=== PATIENT | female | born 1985 ===

== ENCOUNTER 2017-04-06 12:00 | Emergency (ER) | payer MEDICAID ==
[2017-04-06 12:04] VITALS: BP 133/81; PULSE 61; RESP 17; TEMP 98.5; O2SAT 100
[2017-04-06] MEDS ORDERED: Oxycodone/Acetaminophen 5/325 mg Tab PO STA (12:13)
[2017-04-06] MEDS ORDERED: Oxycodone/Acetaminophen 5/325 mg Tab ONE (12:33)
--- NOTE | 2017-04-06 12:36 | ED PDOC ---
HPI: Dental Pain/Injury Time Seen by Provider: 04/06/17 12:06 Chief Complaint (Nursing): Dental Pain Chief Complaint (Provider): Dental pain History Per: Patient History/Exam Limitations: no limitations Onset/Duration Of Symptoms: Days Current Symptoms Are (Timing): Still Present Additional History Per: Patient Additional Complaint(s): The patient is a 32yo female, no pmhx, presents to the ED for evaluation of left jaw pain for the past day. Pt reports the pain is constant and took Tylenol for pain with no relief. She denies any radiation of pain, recent dental work. Pt states she has not followed up with a dentist for her symptoms but has a visit scheduled tomorrow. Past Medical History Reviewed: Historical Data, Nursing Documentation, Vital Signs Vital Signs: Last Vital Signs Temp 98.5 F 04/06/17 12:02 Pulse 61 04/06/17 12:02 Resp 17 04/06/17 12:02 BP 133/81 04/06/17 12:02 Pulse Ox 100 04/06/17 12:02 - Medical History PMH: No Chronic Diseases - Surgical History Surgical History: No Surg Hx - Family History Family History: States: No Known Family Hx, Unknown Family Hx - Home Medications Home Medications: Ambulatory Orders Medication Instructions Recorded Ibuprofen [Motrin] 600 mg PO Q6 #20 tab 04/06/17 - Allergies Allergies/Adverse Reactions: Allergies Allergy/AdvReac Type Severity Reaction Status Date / Time aspirin Allergy RASH Verified 04/06/17 12:26 Review of Systems ROS Statement: Except As Marked, All Systems Reviewed And Found Negative ENT: Positive for: Other (left sided dental pain) Physical Exam - Reviewed Nursing Documentation Reviewed: Yes Vital Signs Reviewed: Yes - Physical Exam Appears: Positive for: Well, Non-toxic, No Acute Distress Head Exam: Positive for: ATRAUMATIC, NORMAL INSPECTION, NORMOCEPHALIC Skin: Positive for: Normal Color, Warm, DRY Eye Exam: Positive for: Normal appearance ENT: Positive for: Normal ENT Inspection, Other (no signs of infection or abscess noted; normal dentition) Neck: Positive for: Normal, Supple Cardiovascular/Chest: Positive for: Regular Rate, Rhythm Respiratory: Positive for: Normal Breath Sounds. Negative for: Respiratory Distress Gastrointestinal/Abdominal: Positive for: Normal Exam, Soft. Negative for: Tenderness Extremity: Positive for: Normal ROM. Negative for: Deformity, Swelling Neurologic/Psych: Positive for: Alert, Oriented - ECG O2 Sat by Pulse Oximetry: 100 (RA) Pulse Ox Interpretation: Normal Medical Decision Making Medical Decision Making: Time: 1206 Impression: Dental pain Plan: -- Toradol 30 mg IM -- Percocet 1 tab PO -- Upreg Reassess Scribe Attestation: Documented by Ashanti Watson acting as a scribe for OLEG Jaquez Provider Attestation: All medical record entries made by the Scribe were at my direction and personally dictated by me. I have reviewed the chart and agree that the record accurately reflects my personal performance of the history, physical exam, medical decision making, and the department course for this patient. I have also personally directed, reviewed, and agree with the discharge instructions and disposition. Disposition - Clinical Impression Clinical Impression: Dental caries - Patient ED Disposition Is Patient to be Admitted: No - Disposition Disposition: Routine/Home Disposition Time: 13:14 Condition: STABLE Prescriptions: Ibuprofen [Motrin] 600 mg PO Q6 #20 tab Instructions: Dental Caries (ED) Forms: [facility] (Mexican) - POA Present On Arrival: None
== END 2017-04-06 13:27 | disposition home or self-care (01) ==
LOC: H.ER 12:00
DX: K02.9 Dental caries, unspecified (principal)
CPT/HCPCS: 81025; 96372; 99282; J1885

== ENCOUNTER 2017-05-22 06:27 | Emergency (ER) | payer MEDICAID ==
[2017-05-22 06:32] VITALS: BP 139/89; PULSE 89; RESP 17; TEMP 98.1; O2SAT 100
--- NOTE | 2017-05-22 07:46 | ED PDOC ---
HPI: Skin/Bite Injury Time Seen by Provider: 05/22/17 07:04 Chief Complaint (Nursing): Abnormal Skin Integrity Chief Complaint (Provider): ingrown hair History Per: Patient History/Exam Limitations: no limitations Onset/Duration Of Symptoms: Days (x 6) Additional Complaint(s): Stephanie Mcfarlane is a 32 year old female, with no previous medical history, who presents to the ED with complaints of an ingrown hair in her groin presenting for 6 days. She denies any fever or chills. Patient reports taking iboprfen for the pain which provided relief. Past Medical History Reviewed: Historical Data, Nursing Documentation, Vital Signs Vital Signs: Last Vital Signs Temp 98.1 F 05/22/17 06:30 Pulse 89 05/22/17 06:30 Resp 17 05/22/17 06:30 BP 139/89 05/22/17 06:30 Pulse Ox 100 05/22/17 08:00 - Medical History PMH: No Chronic Diseases - Family History Family History: States: Unknown Family Hx - Home Medications Home Medications: Ambulatory Orders Medication Instructions Recorded Ibuprofen [Motrin] 600 mg PO Q6 #20 tab 04/06/17 Sulfamethoxazole/Trimethoprim 1 tab PO BID #14 tab 05/22/17 [Bactrim DS 800 mg-160 mg] traMADol [Ultram] 25 mg PO BID PRN #10 tab 05/22/17 - Allergies Allergies/Adverse Reactions: Allergies Allergy/AdvReac Type Severity Reaction Status Date / Time aspirin Allergy RASH Verified 04/06/17 12:26 Review of Systems ROS Statement: Except As Marked, All Systems Reviewed And Found Negative Constitutional: Negative for: Fever, Chills Skin: Positive for: Other (ingrown hair) Physical Exam - Reviewed Nursing Documentation Reviewed: Yes Vital Signs Reviewed: Yes - Physical Exam Appears: Positive for: Well, Non-toxic, No Acute Distress Skin: Positive for: Normal Color, Warm, Dry Pelvic Exam: Positive for: Other (1 cm mass noted on the left lower groin area with minimal fluctuance ) Neurologic/Psych: Positive for: Alert, Oriented - ECG O2 Sat by Pulse Oximetry: 100 (RA) Pulse Ox Interpretation: Normal Medical Decision Making Medical Decision Making: Initial Plan: * urine * wound culture * tylenol 650 mg PO * reevaluation --------- Scribe Attestation: Documented by Samantha Almaraz, acting as a scribe for Samantha Henry MD. Provider Scribe Attestation: All medical record entries made by the Scribe were at my direction and personally dictated by me. I have reviewed the chart and agree that the record accurately reflects my personal performance of the history, physical exam, medical decision making, and the department course for this patient. I have also personally directed, reviewed, and agree with the discharge instructions and disposition Disposition - Clinical Impression Clinical Impression: Abscess of female pelvis - Disposition Referrals: [facility] [Outside] Disposition: Routine/Home Disposition Time: 07:40 Condition: STABLE Prescriptions: Sulfamethoxazole/Trimethoprim [Bactrim DS 800 mg-160 mg] 1 tab PO BID #14 tab traMADol [Ultram] 25 mg PO BID PRN #10 tab PRN Reason: Pain, Severe (8-10) Instructions: Abscess (ED) Forms: [employer] (Kyrgyz), [employer] (Kazakh) Print Language: JAPANESE Procedure: Fluid Aspiration - Time Performed Time Performed: 07:45 (needle aspiration ) - Time Out Time Out: Side verified, Site verified, Patient ID confirmed, Sterile procedures obs. - Consent Obtained Consent obtained: Verbal - Performed By Performed by: Attending Physician - Indications Indication(s): Therapeutic, Diagnostic - Anesthetic Technique Anesthetic Technique: Oral pain medication Procedure: Needle gauge (18) - Post-procedure Post-procedure: Dressed Post-Procedural O2 sat %: 100 - Complications Complications: None - Patient tolerated procedure Patient tolerated procedure: Well
== END 2017-05-22 08:01 | disposition home or self-care (01) ==
LOC: H.ER 06:27
DX: N73.9 Female pelvic inflammatory disease, unspecified (principal)

== ENCOUNTER 2017-09-12 06:49 | Emergency (ER) | payer MEDICAID ==
[2017-09-12 06:52] VITALS: BMI 28.8
[2017-09-12 07:12] VITALS: PULSE 95; RESP 20; TEMP 99.2; O2SAT 98
[2017-09-12] MEDS: Naproxen 500 MG TAB PO ONE (07:30)
--- NOTE | 2017-09-12 07:34 | ED PDOC ---
HPI: General Adult Time Seen by Provider: 09/12/17 07:06 Chief Complaint (Nursing): Cough, Cold, Congestion Chief Complaint (Provider): Cough, Cold, Congestion History Per: Patient History/Exam Limitations: no limitations Onset/Duration Of Symptoms: Days (x 2 to 3 ) Current Symptoms Are (Timing): Still Present Additional Complaint(s): Stephanie is a 32 year old female who presents to the emergency department with upper back pain for 2 to 3 days. Patient states she has slight cough and generalized body pain as well as sore throat. Patient feels like she has the flu. Patient states she was diagnosed with flu 2 months ago here in ER. Patient reports taking her temperature at temperature with a thermometer showed 75 degrees. PMD: No Family Provider Past Medical History Reviewed: Historical Data, Nursing Documentation, Vital Signs Vital Signs: Last Vital Signs Temp 99.2 F 09/12/17 07:09 Pulse 95 H 09/12/17 07:09 Resp 20 09/12/17 07:09 BP 141/84 09/12/17 07:09 Pulse Ox 98 09/12/17 08:06 - Medical History PMH: No Chronic Diseases - Surgical History Surgical History: No Surg Hx - Family History Family History: States: No Known Family Hx Other Family History: Breast Cancer - Social History Current smoker - smoking cessation education provided: Yes (Occasionally smokes Hooka) Alcohol: Occasional Drugs: Denies - Home Medications Home Medications: Ambulatory Orders Medication Instructions Recorded Guaifenesin/Pseudoephedrne HCl 1 ter PO Q12H PRN #10 ter 09/12/17 [Mucinex D 600 mg-60 mg] Naproxen [Naprosyn] 500 mg PO BID PRN #20 tablet 09/12/17 - Allergies Allergies/Adverse Reactions: Allergies Allergy/AdvReac Type Severity Reaction Status Date / Time aspirin Allergy RASH Verified 07/03/17 10:58 Review of Systems ROS Statement: Except As Marked, All Systems Reviewed And Found Negative Constitutional: Positive for: Fever ENT: Positive for: Throat Pain Respiratory: Positive for: Cough Musculoskeletal: Positive for: Back Pain (Upper) Physical Exam - Reviewed Nursing Documentation Reviewed: Yes Vital Signs Reviewed: Yes - Physical Exam Appears: Positive for: In Acute Distress (Mild Discomfort) Skin: Negative for: Rash ENT: Positive for: Normal ENT Inspection, Pharynx Is (Clear) Neck: Positive for: Supple Cardiovascular/Chest: Positive for: Regular Rate, Rhythm (S1 and S2 heart sounds noted) Respiratory: Positive for: Normal Breath Sounds (Lungs clear anterior and posterior). Negative for: Rales, Wheezing Gastrointestinal/Abdominal: Positive for: Normal Exam, Soft. Negative for: Tenderness Back: Positive for: Normal Inspection Extremity: Positive for: Normal ROM. Negative for: Pedal Edema, Deformity Neurologic/Psych: Positive for: Alert, Oriented - Laboratory Results Urine POC: Negative - ECG O2 Sat by Pulse Oximetry: 98 (RA) Pulse Ox Interpretation: Normal - Radiology X-Ray: Read By Radiologist X-Ray Interpretation: No Acute Disease Medical Decision Making Medical Decision Making: Time: 07:18 Plan: - Test - Chest X-Ray - Naproxen 500 mg PO - Influenza A B Scribe Attestation: Documented by Nicanor Morales, acting as a scribe for Sherrie Duron MD Provider Scribe Attestation: All medical record entries made by the Scribe were at my direction and personally dictated by me. I have reviewed the chart and agree that the record accurately reflects my personal performance of the history, physical exam, medical decision making, and the department course for this patient. I have also personally directed, reviewed, and agree with the discharge instructions and disposition. 8.30a - chest x-ray and flu swab negative. will discharge with symptomatic treatment Disposition - Clinical Impression Clinical Impression: URI (upper respiratory infection) - Patient ED Disposition Is Patient to be Admitted: No Doctor Will See Patient In The: Office Counseled Patient/Family Regarding: Diagnosis, Need For Followup, Rx Given - Disposition Disposition: Routine/Home Disposition Time: 08:30 Condition: STABLE Prescriptions: Guaifenesin/Pseudoephedrne HCl [Mucinex D 600 mg-60 mg] 1 ter PO Q12H PRN #10 ter PRN Reason: cough/congestion Naproxen [Naprosyn] 500 mg PO BID PRN #20 tablet PRN Reason: Pain, Moderate (4-7) Forms: [facility] (Setswana) - POA Present On Arrival: None
--- NOTE | 2017-09-12 08:11 | RAD ---
HISTORY: upper back pain COMPARISON: No prior. TECHNIQUE: Chest PA and lateral FINDINGS: LUNGS: No active pulmonary disease. PLEURA: No significant pleural effusion identified. No pneumothorax apparent. CARDIOVASCULAR: Normal. OSSEOUS STRUCTURES: No significant abnormalities. VISUALIZED UPPER ABDOMEN: Normal. OTHER FINDINGS: None. IMPRESSION: No active disease.
[2017-09-12 09:01] VITALS: BP 120/70
== END 2017-09-12 09:01 | disposition home or self-care (01) ==
LOC: H.ER 06:49
DX: J06.9 Acute upper respiratory infection, unspecified (principal)

== ENCOUNTER 2018-02-12 14:31 | Emergency (ER) | payer MEDICAID, OTHER, SELFPAY ==
[2018-02-12 14:31] VITALS: BMI 28.8
[2018-02-12 14:38] VITALS: BP 112/74; PULSE 74; RESP 18; TEMP 99; O2SAT 97
--- NOTE | 2018-02-12 17:07 | ED PDOC ---
HPI: Back Time Seen by Provider: 02/12/18 15:16 Chief Complaint (Nursing): Upper Extremity Problem/Injury Chief Complaint (Provider): Lower Back Pain History Per: Patient History/Exam Limitations: no limitations Onset/Duration Of Symptoms: Days (4) Current Symptoms Are (Timing): Still Present Quality Of Discomfort: "Pain" Previous Symptoms: Back Pain Exacerbating Factor(s): Movement Additional Complaint(s): 32 y/o female presents to the ED with lower back pain. Patient reports it began 4 days ago and worsens with movement. She states she had a similar episode 8 years ago after giving but symptoms resolved on their own 2 weeks later. Patient denies any radiation of the pain. Denies any trauma, fall, fever, nausea , vomiting, abdominal pain, chest pain, saddle anesthesia, or urinary symptoms. Of note, patient also reports a squeezing sensation to the left forearm with movement that shoots into her fingers. She states it is intermittent and denies having it currently. Denies any trauma, overlying skin changes to that area, weakness, or numbness. LMP: 01/09/2018 PMD: none provided Past Medical History Reviewed: Historical Data, Nursing Documentation, Vital Signs Vital Signs: Last Vital Signs Temp 99.0 F 02/12/18 14:37 Pulse 74 02/12/18 14:37 Resp 18 02/12/18 14:37 BP 112/74 02/12/18 14:37 Pulse Ox 97 02/12/18 14:37 - Medical History PMH: No Chronic Diseases - Surgical History Surgical History: (2) - Family History Family History: States: Unknown Family Hx - Social History Current smoker - smoking cessation education provided: No Ex-Smoker (has not smoked in the last 12 months): No Alcohol: None Drugs: Denies - Home Medications Home Medications: Ambulatory Orders Medication Instructions Recorded Guaifenesin/Pseudoephedrne HCl 1 ter PO Q12H PRN #10 ter 09/12/17 [Mucinex D 600 mg-60 mg] Naproxen [Naprosyn] 500 mg PO BID PRN #20 tablet 09/12/17 Cyclobenzaprine [Cyclobenzaprine 10 mg PO Q8 PRN #12 tab 02/12/18 HCl] Naproxen 500 mg PO BID PRN #20 tab 02/12/18 - Allergies Allergies/Adverse Reactions: Allergies Allergy/AdvReac Type Severity Reaction Status Date / Time aspirin Allergy RASH Verified 07/03/17 10:58 Review of Systems ROS Statement: Except As Marked, All Systems Reviewed And Found Negative Constitutional: Negative for: Fever, Other (no trauma or falls) Cardiovascular: Negative for: Chest Pain Gastrointestinal: Negative for: Nausea, Vomiting, Abdominal Pain Genitourinary Female: Negative for: Incontinence, Other (urinary symptoms) Musculoskeletal: Positive for: Back Pain (lower; worsens with movement). Negative for: Other (radiation of back pain) Neurological: Negative for: Weakness, Numbness, Other (saddle anesthesia) Physical Exam - Reviewed Nursing Documentation Reviewed: Yes Vital Signs Reviewed: Yes - Physical Exam Comments: GENERAL APPEARANCE: Patient is awake, alert, oriented x 3, in no acute distress. SKIN: Warm, dry; (-) cyanosis. EYES: (-) conjunctival pallor. ENMT: Mucous membranes moist. NECK: (-) tenderness, (-) stiffness, (-) lymphadenopathy. CHEST AND RESPIRATORY: (-) rales, (-) rhonchi, (-) wheezes; breath sounds equal bilaterally. HEART AND CARDIOVASCULAR: (-) irregularity; (-) murmur, (-) gallop. ABDOMEN AND GI: Soft; (-) tenderness; (-) palpable mass. BACK: (+) reproducible bilateral paralumbar tenderness, (-) direct bony tenderness, (-) CVA tenderness (-) deformity (-) midline tenderness. Straight leg raising (-) bilaterally. EXTREMITIES: (-) deformity. Distal pulses good bilaterally. NEURO AND PSYCH: Mental status as above. Intact sensation bilaterally; normal strength in extension of the knees, plantar and dorsiflexion of the toes. DTRs symmetric. - Laboratory Results Urine POC: Negative Urine dip results: Negative for: Leukocyte Esterase, Blood, Nitrate, Ketones, Glucose, Bilirubin, Protein - ECG O2 Sat by Pulse Oximetry: 97 (RA) Pulse Ox Interpretation: Normal Medical Decision Making Medical Decision Making: Time: 15:00 Impression: Back pain, likely musculoskeletal Plan: * UDip * Flexiril 10 mg PO * Toradol 30 mg IM * Ultram 50 mg PO (Not driving home) * Urine preg test 1630 Urine dipstick reviewed and unremarkable. Upreg: negative 1750 On re-evaluation, patient reports resolution of symptoms. On exam, patient remains AAOx3, in no acute distress. On exam, neck is supple, lungs CTA, cardiac RRR, abdomen is soft and non-tender, neuro exam shows no focal findings. VSS, stable for discharge. Diagnostic results d/w the patient in great detail. Dx of acute back pain, musculoskeletal pain d/w the patient. Based on history, exam and diagnostic results plan will be for discharge and outpatient follow up. Advised to follow up with primary care physician in 1-2 days without fail. Advised to take medication as prescribed. Return to the emergency room at any time for any new or worsening symptoms. Patient states she fully agrees with and understands discharge instructions. States that she agrees with the plan and disposition. Verbalized and repeated discharge instructions and plan. I have given the patient opportunity to ask any additional questions. Scribe Attestation: Documented by Gino Fried acting as a scribe Lydia Hsu PA-C. MD Scribe Attestation: All medical record entries made by the Scribe were at my direction and personally dictated by me. I have reviewed the chart and agree that the record accurately reflects my personal performance of the history, physical exam, medical decision making, and the department course for this patient. I have also personally directed, reviewed, and agree with the discharge instructions and disposition. Disposition - Clinical Impression Clinical Impression: Back pain, Musculoskeletal arm pain - Patient ED Disposition Is Patient to be Admitted: No Counseled Patient/Family Regarding: Studies Performed, Diagnosis, Need For Followup, Rx Given - Disposition Referrals: [facility] [Outside] Disposition: Routine/Home Disposition Time: 18:01 Condition: STABLE Additional Instructions: FOLLOW UP WITH PMD/CLINIC IN 1-2 DAYS WITHOUT FAIL. RETURN TO ED WITH ANY NEW OR WORSENING SYMPTOMS. Prescriptions: Cyclobenzaprine [Cyclobenzaprine HCl] 10 mg PO Q8 PRN #12 tab PRN Reason: Muscle Spasm Naproxen 500 mg PO BID PRN #20 tab PRN Reason: Pain, Moderate (4-7) Instructions: Muscle and Bone Pain (DC), Low Back Pain in Adults, Muscle Spasms (DC) Forms: [employer] (Anguillan) Print Language: FRISIAN - POA Present On Arrival: None
== END 2018-02-12 18:19 | disposition home or self-care (01) ==
LOC: H.ER 14:31
DX: M54.5 Low back pain (principal); M79.602 Pain in left arm; M79.1 Myalgia
CPT/HCPCS: 96372; 99283; J1885

== ENCOUNTER 2018-05-02 16:34 | Emergency (ER) | payer MEDICAID, OTHER ==
[2018-05-02 16:34] VITALS: BMI 28.8
--- NOTE | 2018-05-02 18:10 | ED PDOC ---
HPI: General Adult Time Seen by Provider: 05/02/18 16:50 Chief Complaint (Nursing): Lower Extremity Problem/Injury Chief Complaint (Provider): Bilateral upper and lower Extremity Pain History Per: Patient History/Exam Limitations: no limitations Onset/Duration Of Symptoms: Days Current Symptoms Are (Timing): Constant Additional Complaint(s): 33 year old female presents to the ED for an evaluation of pain and swelling of both feet and hands. Patient states she stands all day for 8 hours at her new job. She describes the pain as constant and feels tired. Denies any fall or excessive walking. no headache, dizziness, sob or chest pain PMD: No Family Provider Past Medical History Reviewed: Historical Data, Nursing Documentation, Vital Signs Vital Signs: Last Vital Signs Temp 98 F 05/02/18 19:11 Pulse 78 05/02/18 19:11 Resp 18 05/02/18 19:11 BP 122/80 05/02/18 19:11 Pulse Ox 99 05/02/18 19:11 - Medical History PMH: No Chronic Diseases - Surgical History Surgical History: (2) - Family History Family History: States: Unknown Family Hx - Home Medications Home Medications: Ambulatory Orders Medication Instructions Recorded Guaifenesin/Pseudoephedrne HCl 1 ter PO Q12H PRN #10 ter 09/12/17 [Mucinex D 600 mg-60 mg] Naproxen [Naprosyn] 500 mg PO BID PRN #20 tablet 09/12/17 Cyclobenzaprine [Cyclobenzaprine 10 mg PO Q8 PRN #12 tab 02/12/18 HCl] Naproxen 500 mg PO BID PRN #20 tab 02/12/18 - Allergies Allergies/Adverse Reactions: Allergies Allergy/AdvReac Type Severity Reaction Status Date / Time aspirin Allergy RASH Verified 05/02/18 16:41 Review of Systems ROS Statement: Except As Marked, All Systems Reviewed And Found Negative Constitutional: Negative for: Fever Musculoskeletal: Positive for: Hand Pain, Leg Pain Psych: Negative for: Suicidal ideation (homicidal ideation ) Physical Exam - Reviewed Nursing Documentation Reviewed: Yes Vital Signs Reviewed: Yes - Physical Exam Appears: Positive for: Well, Non-toxic, No Acute Distress Head Exam: Positive for: ATRAUMATIC, NORMAL INSPECTION, NORMOCEPHALIC Skin: Positive for: Normal Color, Warm, Dry Eye Exam: Positive for: Normal appearance Extremity: Positive for: Normal ROM. Negative for: Tenderness, Pedal Edema, Deformity, Swelling Neurologic/Psych: Positive for: Alert, Oriented (x3). Negative for: Motor/ Sensory Deficits - Laboratory Results Result Diagrams: 05/02/18 18:30 05/02/18 18:30 - ECG O2 Sat by Pulse Oximetry: 100 (RA) Medical Decision Making Medical Decision Making: Time: 1748 Initial Impression: bilateral upper and lower extremity edema Initial Plan: --CMP --CBC w/ Differential --Reevaluation Pt asking to go home after blood draw, unable to await for results. Pt advised supportive care measures, follow up with PMD or clinic. return to ED with any concerns Scribe Attestation: Documented by Mynor Wilson, acting as a scribe for Sahara Cloud PA-C. Provider Scribe Attestation: All medical record entries made by the Scribe were at my direction and personally dictated by me. I have reviewed the chart and agree that the record accurately reflects my personal performance of the history, physical exam, medical decision making, and the department course for this patient. I have also personally directed, reviewed, and agree with the discharge instructions and disposition. Disposition - Clinical Impression Clinical Impression: Leg edema, Swelling of extremity - Patient ED Disposition Is Patient to be Admitted: No - Disposition Disposition: Routine/Home Disposition Time: 22:04 Condition: STABLE Instructions: Dependent Edema (DC) Forms: [employer] (Andorran) Print Language: GREENLANDIC
[2018-05-02 18:49] LABS: BASO % 0.6 % (0.0-2.0); EOS # 0.2 K/uL (0.0-0.7); EOS % 3.3 % (0.0-4.0); HEMOGLOBIN 13.6 g/dL (12.0-16.0); LYMPH # 2.7 K/uL (1.0-4.3); LYMPH % 46.1 % (20.0-40.0); MEAN CELL VOLUME 91.9 fl (81.0-99.0); MEAN CORPUSCULAR HEMOGLOBIN 30.6 pg (27.0-31.0); MEAN CORPUSCULAR HGB CONC 33.3 g/dL (33.0-37.0); MEAN PLATELET VOLUME 8.5 fl (7.2-11.7); MONO # 0.4 K/uL (0.0-0.8); MONO % 7.3 % (0.0-10.0); NEUT # 2.5 K/uL (1.8-7.0); NEUT % 42.7 % (50.0-75.0); RBC 4.44 Mil/uL (3.80-5.20); RED CELL DISTRIBUTION WIDTH 13.9 % (11.5-14.5); WHITE BLOOD COUNT 5.8 K/uL (4.8-10.8)
[2018-05-02 19:04] LABS: ALB/GLOB RATIO 1.2 (1.0-2.1); ALBUMIN 3.6 g/dL (3.5-5.0); ALT/SGPT 32 U/L (9-52); AST/SGOT 31 U/L (14-36); BLOOD UREA NITROGEN 15 mg/dl (7-17); CALCIUM 8.9 mg/dL (8.4-10.2); GFR NON-AFRICAN AMERICAN > 60
[2018-05-02 19:12] VITALS: BP 122/80; PULSE 78; RESP 18; TEMP 98
[2018-05-02 22:04] VITALS: O2SAT 100
== END 2018-05-02 19:11 | disposition home or self-care (01) ==
LOC: H.ER 16:34
DX: R60.0 Localized edema (principal)

== ENCOUNTER 2018-05-07 11:19 | Emergency (ER) | payer MEDICAID ==
[2018-05-07 11:20] VITALS: BMI 28.8
[2018-05-07 13:25] LABS: BASO % 0.6 % (0.0-2.0); EOS # 0.2 K/uL (0.0-0.7); EOS % 3.9 % (0.0-4.0); HEMOGLOBIN 14.9 g/dL (12.0-16.0); LYMPH # 2.3 K/uL (1.0-4.3); LYMPH % 42.7 % (20.0-40.0); MEAN CELL VOLUME 91.8 fl (81.0-99.0); MEAN CORPUSCULAR HEMOGLOBIN 30.3 pg (27.0-31.0); MEAN PLATELET VOLUME 8.4 fl (7.2-11.7); MONO # 0.4 K/uL (0.0-0.8); MONO % 7.9 % (0.0-10.0); NEUT # 2.4 K/uL (1.8-7.0); NEUT % 44.9 % (50.0-75.0); NRBC % 0.1 % (0.0-0.0); RBC 4.92 Mil/uL (3.80-5.20); RED CELL DISTRIBUTION WIDTH 13.9 % (11.5-14.5); WHITE BLOOD COUNT 5.4 K/uL (4.8-10.8)
[2018-05-07 14:04] LABS: BLOOD UREA NITROGEN 13 mg/dl (7-17); CALCIUM 9.4 mg/dL (8.4-10.2); GFR NON-AFRICAN AMERICAN > 60
--- NOTE | 2018-05-07 14:14 | ED PDOC ---
HPI: Abdomen Time Seen by Provider: 05/07/18 12:10 Chief Complaint (Nursing): Abdominal Pain Chief Complaint (Provider): abdominal pain and b/l leg swelling History Per: Patient History/Exam Limitations: no limitations Onset/Duration Of Symptoms: Days (x1 month) Current Symptoms Are (Timing): Still Present Location Of Pain/Discomfort: RLQ Associated Symptoms: denies: Fever, Chills, Chest Pain, Urinary Symptoms Additional Complaint(s): Stephanie Mcfarlane is a 33 year old female, with no significant past medical history , who presents to the emergency department complaining of intermittent bilateral leg swelling onset for x1 month and right sided pelvic pain onset for x2 weeks. Patient denies any fever, chills, urinary symptoms, chest pain and shortness of breath. No further medical complaints. PMD: None provided. Past Medical History Reviewed: Historical Data, Nursing Documentation, Vital Signs - Medical History PMH: No Chronic Diseases - Surgical History Surgical History: (2) Other surgeries: tubal ligation - Family History Family History: States: Unknown Family Hx - Home Medications Home Medications: Ambulatory Orders Medication Instructions Recorded Guaifenesin/Pseudoephedrne HCl 1 ter PO Q12H PRN #10 ter 09/12/17 [Mucinex D 600 mg-60 mg] Naproxen [Naprosyn] 500 mg PO BID PRN #20 tablet 09/12/17 Cyclobenzaprine [Cyclobenzaprine 10 mg PO Q8 PRN #12 tab 02/12/18 HCl] Naproxen 500 mg PO BID PRN #20 tab 02/12/18 - Allergies Allergies/Adverse Reactions: Allergies Allergy/AdvReac Type Severity Reaction Status Date / Time aspirin Allergy RASH Verified 05/02/18 16:41 Review of Systems ROS Statement: Except As Marked, All Systems Reviewed And Found Negative Constitutional: Negative for: Fever, Chills Cardiovascular: Negative for: Chest Pain Respiratory: Negative for: Shortness of Breath Genitourinary Female: Positive for: Pelvic Pain (right sided). Negative for: Dysuria, Frequency Musculoskeletal: Positive for: Leg Pain (b/l leg swelling) Physical Exam - Reviewed Nursing Documentation Reviewed: Yes Vital Signs Reviewed: Yes - Physical Exam Appears: Positive for: No Acute Distress Head Exam: Positive for: ATRAUMATIC, NORMAL INSPECTION, NORMOCEPHALIC Skin: Positive for: Normal Color, Warm, Dry Eye Exam: Positive for: Normal appearance, EOMI, PERRL Neck: Positive for: Painless ROM Cardiovascular/Chest: Positive for: Regular Rate, Rhythm. Negative for: Murmur Respiratory: Positive for: Normal Breath Sounds. Negative for: Respiratory Distress Gastrointestinal/Abdominal: Positive for: Tenderness (mild tenderness in RLQ) Extremity: Positive for: Normal ROM, Pedal Edema, Swelling (pitting edema to right and left lower leg.). Negative for: Deformity Neurologic/Psych: Positive for: Alert, Oriented. Negative for: Motor/Sensory Deficits - Laboratory Results Result Diagrams: 05/07/18 13:10 05/07/18 13:50 Medical Decision Making Medical Decision Making: Time: 12:10 Initial Impression: Bilateral leg swelling and right lower quadrant pelvic pain. Differential diagnosis for leg swelling include acute vs chronic renail failure r/o CHF. Differential for pelvic pain considered ovarian cysts or mass. Possible dehydration and less likely complication and UTI Initial Plan: --BNP --BMP --Urine --Urine dipstick --CBC w/ differential --Pelvis/Transvaginal [US] --Reevaluation 16:48 Pelvis/Transvaginal US FINDINGS: UTERUS: Measures 9.1 x 4.2 x 5.5 cm. Anteverted. ENDOMETRIUM: Measures 1.6 cm in diameter. CERVIX: Tiny nabothian cysts. RIGHT OVARY: Measures 3.4 x 1.9 x 3.1 cm. Blood flow is demonstrated. Fluid is noted adjacent to the ovary. LEFT OVARY: Measures 3.6 x 2.7 x 2.5 cm. Blood flow is demonstrated. FREE FLUID: See above. OTHER FINDINGS: None. IMPRESSION: Small fluid is noted adjacent to the right ovary. Scribe Attestation: Documented by Simone Medrano, acting as a scribe for Marcin Bob MD Provider Scribe Attestation: All medical record entries made by the Scribe were at my direction and personally dictated by me. I have reviewed the chart and agree that the record accurately reflects my personal performance of the history, physical exam, medical decision making, and the department course for this patient. I have also personally directed, reviewed, and agree with the discharge instructions and disposition. Disposition - Clinical Impression Clinical Impression: Ovarian cyst - Disposition Referrals: [facility] [Outside] Condition: GOOD Additional Instructions: Follow up with your PCP in 2-3 days. Instructions: Ovarian Cysts, Dependent Edema (DC) Print Language: LITHUANIAN
--- NOTE | 2018-05-07 16:50 | US ---
Date of service: 05/07/2018 HISTORY: right pelvic pain COMPARISON: None available. TECHNIQUE: Real-time transabdominal pelvic ultrasound was performed. In addition a transvaginal pelvic ultrasound was necessary to better depict pelvic anatomy. FINDINGS: UTERUS: Measures 9.1 x 4.2 x 5.5 cm. Anteverted. ENDOMETRIUM: Measures 1.6 cm in diameter. CERVIX: Tiny nabothian cysts. RIGHT OVARY: Measures 3.4 x 1.9 x 3.1 cm. Blood flow is demonstrated. Fluid is noted adjacent to the ovary. LEFT OVARY: Measures 3.6 x 2.7 x 2.5 cm. Blood flow is demonstrated. FREE FLUID: See above. OTHER FINDINGS: None. IMPRESSION: Small fluid is noted adjacent to the right ovary.
[2018-05-07 17:38] VITALS: BP 130/76; PULSE 67; RESP 18; TEMP 98.5; O2SAT 99
== END 2018-05-07 17:35 | disposition home or self-care (01) ==
LOC: H.ER 11:19
DX: N83.209 Unspecified ovarian cyst, unspecified side (principal)

== ENCOUNTER 2018-07-05 08:52 | Emergency (ER) | payer OTHER ==
[2018-07-05 09:07] VITALS: BMI 31.4
[2018-07-05] MEDS ORDERED: Iohexol 240 (50 ml) PO ONE (10:05)
[2018-07-05 10:32] LABS: SQUAMOUS EPITHIAL < 1 /hpf (0-5); URINE BACTERIA OCC (<OCC); URINE BILIRUBIN NEGATIVE (NEGATIVE); URINE BLOOD LARGE (NEGATIVE); URINE CLARITY TURBID (Clear); URINE COLOR YELLOW (YELLOW); URINE GLUCOSE (UA) NEG (Normal); URINE LEUKOCYTE ESTERASE NEG Leu/uL (Negative); URINE PROTEIN NEGATIVE (NEGATIVE); URINE UROBILINOGEN 0.2-1.0 mg/dL (0.2-1.0)
[2018-07-05] MEDS ORDERED: Iohexol 240 (50 ml) ONE (10:46)
[2018-07-05 11:29] LABS: BASO % 0.4 % (0.0-2.0); EOS % 0.8 % (0.0-4.0); LYMPH % 15.8 % (20.0-40.0); MEAN CORPUSCULAR HEMOGLOBIN 30.6 pg (27.0-31.0); MEAN CORPUSCULAR HGB CONC 33.2 g/dL (33.0-37.0); MEAN PLATELET VOLUME 8.6 fl (7.2-11.7); MONO # 0.3 K/uL (0.0-0.8); MONO % 5.7 % (0.0-10.0); NEUT # 4.8 K/uL (1.8-7.0); NEUT % 77.3 % (50.0-75.0); RBC 4.58 Mil/uL (3.80-5.20); RED CELL DISTRIBUTION WIDTH 13.6 % (11.5-14.5); WHITE BLOOD COUNT 6.2 K/uL (4.8-10.8)
--- NOTE | 2018-07-05 11:54 | ED PDOC ---
HPI: General Adult Time Seen by Provider: 07/05/18 09:26 Chief Complaint (Nursing): Back Pain History Per: Patient Additional Complaint(s): Pt. states 4 days ago she developed L sided atraumatic non-radiating lower back pain. States yesterday evening she started her period and shortly after she developed b/l lower abdominal pain associated with non-bloody vomiting and non- bloody watery diarrhea. Reports back pain is not worse with movement. Denies dysuria, hematuria, trauma, incontinence, fever, hematemesis, melena, hematochezia, BRBPR. Past Medical History Reviewed: Historical Data, Nursing Documentation, Vital Signs Vital Signs: Last Vital Signs Temp 98.1 F 07/05/18 09:06 Pulse 62 07/05/18 09:06 Resp 18 07/05/18 09:06 BP 143/82 07/05/18 09:06 Pulse Ox 99 07/05/18 09:06 - Surgical History Other surgeries: abdominoplasty - Family History Family History: States: No Known Family Hx - Allergies Allergies/Adverse Reactions: Allergies Allergy/AdvReac Type Severity Reaction Status Date / Time aspirin Allergy RASH Verified 07/05/18 09:34 Review of Systems ROS Statement: Except As Marked, All Systems Reviewed And Found Negative Gastrointestinal: Positive for: Nausea, Vomiting, Abdominal Pain, Diarrhea Physical Exam - Physical Exam Appears: Positive for: Well, Non-toxic, No Acute Distress Skin: Positive for: Normal Color, Warm. Negative for: Rash Eye Exam: Positive for: Normal appearance Cardiovascular/Chest: Positive for: Regular Rate, Rhythm Respiratory: Positive for: CNT, Normal Breath Sounds Gastrointestinal/Abdominal: Positive for: Normal Exam, Soft, Tenderness (b/l RLQ and LLQ abd tenderness). Negative for: Distended, Guarding Back: Positive for: Normal Inspection. Negative for: L CVA Tenderness, R CVA Tenderness, Vertebral Tenderness Neurologic/Psych: Positive for: Alert, Oriented (x3). Negative for: Aphasia, Facial Droop - Laboratory Results Result Diagrams: 07/05/18 11:23 07/05/18 11:23 - ECG O2 Sat by Pulse Oximetry: 99 - Progress ED Course And Treament: Labs, morphine 2mg, zofran 4mg IV, IV NS bolus x [address] abd/pelvis w/ PO and IV contrast: negative. Pt. informed of results. Pain has improved and is now resolved. Disposition - Clinical Impression Clinical Impression: Low back pain, Dysmenorrhea - Patient ED Disposition Is Patient to be Admitted: No - Disposition Referrals: [facility] [Outside] [facility] [Outside] Disposition: Routine/Home Disposition Time: 15:49 Condition: IMPROVED Additional Instructions: VAISHALI CHAN, thank you for letting us take care of you today. Your provider was Sherrie Duron MD and you were treated for BACK PAIN. The emergency medical care you received today was directed at your acute symptoms. If you were prescribed any medication, please fill it and take as directed. It may take several days for your symptoms to resolve. Return to the Emergency Department if your symptoms worsen, do not improve, or if you have any other problems. Please contact your doctor or call one of the physicians/clinics you have been referred to that are listed on the Patient Visit Information form that is included in your discharge packet. Bring any paperwork you were given at discharge with you along with any medications you are taking to your follow up visit. Our treatment cannot replace ongoing medical care by a primary care provider outside of the emergency department. Thank you for allowing the [facility] team to be part of your care today. If you had an X-Ray or CT scan: A Radiologist will review the ED reading if any change in treatment is needed we will contact you. If you had a blood, urine, or wound culture: It will take several days for the results, if any change in treatment is needed we will contact you. If you had an STI test: It will take 48 hours for the results. Please call after 1 week if you have not heard back. Instructions: Low Back Pain (DC), Menstrual Cramps (DC) Forms: [employer] (British)
[2018-07-05 12:01] LABS: ALB/GLOB RATIO 1.2 (1.0-2.1); ALT/SGPT 31 U/L (9-52); AST/SGOT 27 U/L (14-36); BLOOD UREA NITROGEN 7 mg/dl (7-17); CALCIUM 8.9 mg/dL (8.4-10.2); GFR NON-AFRICAN AMERICAN > 60
[2018-07-05 13:59] VITALS: PULSE 78; RESP 19
[2018-07-05] MEDS ORDERED: Sodium Chloride 0.9% 50 ML IV ONE (14:40)
[2018-07-05] MEDS ORDERED: Iohexol 300 100 ML IJ ONE (14:40)
--- NOTE | 2018-07-05 15:17 | CT ---
Date of service: 07/05/2018 PROCEDURE: CT Abdomen and Pelvis with contrast HISTORY: LLQ abd pain with diarrhea and back pain COMPARISON: None. TECHNIQUE: Contrast dose: 95 cc of Omnipaque 300 intravenously. Axial and reformatted coronal and sagittal CT images of the abdomen and pelvis were obtained after IV and oral contrast administration. Radiation dose: Total exam DLP = 811.16 mGy-cm. This CT exam was performed using one or more of the following dose reduction techniques: Automated exposure control, adjustment of the mA and/or kV according to patient size, and/or use of iterative reconstruction technique. FINDINGS: LOWER THORAX: No evidence of acute pathology at the lung bases LIVER: Mild hepatic steatosis is noted. No gross lesion or ductal dilatation. GALLBLADDER AND BILE DUCTS: Unremarkable. PANCREAS: Unremarkable. No gross lesion or ductal dilatation. SPLEEN: Unremarkable. ADRENALS: Unremarkable. No mass. KIDNEYS AND URETERS: Unremarkable. No hydronephrosis. No solid mass. VASCULATURE: Unremarkable. No aortic aneurysm. No aortic atherosclerotic calcification or mural plaque present. BOWEL: Unremarkable. No obstruction. No gross mural thickening. APPENDIX: Normal appendix. PERITONEUM: Unremarkable. No free fluid. No free air. LYMPH NODES: Unremarkable. No enlarged lymph nodes. BLADDER: Unremarkable. REPRODUCTIVE: Unremarkable. BONES: No acute fracture. OTHER FINDINGS: None. IMPRESSION: No CT evidence of diverticulitis cholecystitis pancreatitis or appendicitis. No evidence of bowel obstruction or hydronephrosis.
[2018-07-05 16:20] VITALS: BP 126/78; TEMP 97
[2018-07-06 15:42] VITALS: O2SAT 99
== END 2018-07-05 16:21 | disposition home or self-care (01) ==
LOC: MERGE 08:52 → H.ER 08:52
DX: N94.6 Dysmenorrhea, unspecified (principal); M54.5 Low back pain
CPT/HCPCS: 74177; 80053; 81003; 81025; 85025; 96374; 96375; 99283; J2270; J2405; Q9966; Q9967

== ENCOUNTER 2018-11-23 16:29 | Emergency (ER) | payer MEDICAID ==
[2018-11-23 16:30] VITALS: BMI 28.8
[2018-11-23 16:45] VITALS: BP 115/71; PULSE 73; RESP 16; TEMP 98.5; O2SAT 98
--- NOTE | 2018-11-23 17:11 | ED PDOC ---
HPI: Eye Injury/Pain Time Seen by Provider: 11/23/18 16:55 Chief Complaint (Nursing): Eye Problem Chief Complaint (Provider): right lower eyelid pain and swelling History Per: Patient History/Exam Limitations: no limitations Onset/Duration Of Symptoms: Days (x2-3) Current Symptoms Are (Timing): Still Present Associated Symptoms: Pain, Swelling. denies: Decreased Vision, Itching, Discharge From Eye Additional Complaint(s): Stephanie Cramer is a 33 year old female, with no significant past medical history, who presents to the emergency department for evaluation of right lower eyelid pain and swelling onset x2-3 days ago. Patient states she initially had ongoing swelling to left upper eyelid, she saw an cheese cutter who recommended to have it extracted. She reports not following up with the doctor since swelling decreased on its own. However, patient states she has now developed right lower eyelid swelling and pain. She denies any fever, chills or other medical complaints. PMD: None provided. Past Medical History Reviewed: Historical Data, Nursing Documentation, Vital Signs Vital Signs: Last Vital Signs Temp 98.5 F 11/23/18 16:40 Pulse 73 11/23/18 16:40 Resp 16 11/23/18 16:40 BP 115/71 11/23/18 16:40 Pulse Ox 98 11/23/18 16:40 - Medical History PMH: No Chronic Diseases - Surgical History Surgical History: (2) - Family History Family History: States: Unknown Family Hx - Home Medications Home Medications: Ambulatory Orders Medication Instructions Recorded Guaifenesin/Pseudoephedrne HCl 1 ter PO Q12H PRN #10 ter 09/12/17 [Mucinex D 600 mg-60 mg] Naproxen [Naprosyn] 500 mg PO BID PRN #20 tablet 09/12/17 Cyclobenzaprine [Cyclobenzaprine 10 mg PO Q8 PRN #12 tab 02/12/18 HCl] Naproxen 500 mg PO BID PRN #20 tab 02/12/18 Acetaminophen [Tylenol] 325 mg PO Q6 PRN #30 tab 08/10/18 Amoxicillin/Clavulanate [Augmentin 1 tab PO BID #14 tab 08/10/18 875 MG-125 MG] Loratadine [Claritin] 10 mg PO DAILY #10 tab 08/10/18 predniSONE [Prednisone] 20 mg PO BID #10 tab 08/10/18 Erythromycin 0.5% [Erythromycin] 0.5 in BOTHEYES BID #1 tub 11/23/18 - Allergies Allergies/Adverse Reactions: Allergies Allergy/AdvReac Type Severity Reaction Status Date / Time aspirin Allergy RASH Verified 11/23/18 16:40 Review of Systems ROS Statement: Except As Marked, All Systems Reviewed And Found Negative Constitutional: Negative for: Fever, Chills Eyes: Positive for: Eyelid Inflammation (right lower eyelid swelling and pain) Physical Exam - Reviewed Nursing Documentation Reviewed: Yes Vital Signs Reviewed: Yes - Physical Exam Appears: Positive for: No Acute Distress Head Exam: Positive for: ATRAUMATIC, NORMAL INSPECTION, NORMOCEPHALIC Skin: Positive for: Normal Color, Warm, Dry Eye Exam: Positive for: EOMI, PERRL, Other (Right lower eyelid mild erythema and swelling. No drainage or signs of cellulitis. ) Neck: Positive for: Normal, Painless ROM Extremity: Positive for: Normal ROM (all extremities). Negative for: Deformity, Swelling Neurological/Psych: Positive for: Awake, Alert, Normal Tone - ECG O2 Sat by Pulse Oximetry: 98 (RA) Pulse Ox Interpretation: Normal Medical Decision Making Medical Decision Making: Time: 16:55 Initial Impression: Stye Initial Plan: 17:15 -Patient advised to apply warm compresses to the area and follow up with cheese cutter. Patient is medically stable, and requires no further treatment in the ED at this time. Patient will be discharged home. Counseling was provided and all questions were answered regarding diagnosis. There is agreement to discharge plan. Return if symptoms persist or worsen. Scribe Attestation: Documented by Simone Medrano, acting as a scribe for Anthony Mtz PA-C. Provider Scribe Attestation: All medical record entries made by the Scribe were at my direction and personally dictated by me. I have reviewed the chart and agree that the record accurately reflects my personal performance of the history, physical exam, medical decision making, and the department course for this patient. I have also personally directed, reviewed, and agree with the discharge instructions and disposition. Disposition - Clinical Impression Clinical Impression: Vicky external - Patient ED Disposition Is Patient to be Admitted: No - Disposition Referrals: Jd Trivedi MD [Staff Provider] - Disposition: Routine/Home Disposition Time: 17:15 Condition: STABLE Prescriptions: Erythromycin 0.5% [Erythromycin] 0.5 in BOTHEYES BID #1 tub Instructions: Vicky ([employer]) Print Language: TURKMEN
== END 2018-11-23 17:23 | disposition home or self-care (01) ==
LOC: H.ER 16:29
DX: H00.013 Hordeolum externum right eye, unspecified eyelid (principal)

== ENCOUNTER 2019-01-14 02:35 | Emergency (ER) | payer MEDICAID ==
[2019-01-14 02:52] VITALS: BMI 29.5
[2019-01-14] MEDS ORDERED: Sodium Chloride 0.9% 1,000 ML IV STA (03:05)
[2019-01-14] MEDS ORDERED: Iohexol 240 (50 ml) PO ONE (03:06)
[2019-01-14 03:23] LABS: BASO % 0.4 % (0.0-2.0); EOS # 0.2 K/uL (0.0-0.7); EOS % 2.4 % (0.0-4.0); HEMOGLOBIN 13.7 g/dL (12.0-16.0); LYMPH # 2.9 K/uL (1.0-4.3); MEAN CELL VOLUME 91.5 fl (81.0-99.0); MEAN CORPUSCULAR HEMOGLOBIN 30.7 pg (27.0-31.0); MEAN CORPUSCULAR HGB CONC 33.6 g/dL (33.0-37.0); MEAN PLATELET VOLUME 8.2 fl (7.2-11.7); MONO # 0.5 K/uL (0.0-0.8); MONO % 6.9 % (0.0-10.0); NEUT # 3.3 K/uL (1.8-7.0); NEUT % 48.3 % (50.0-75.0); NRBC % 0.1 % (0.0-0.0); RBC 4.45 Mil/uL (3.80-5.20); RED CELL DISTRIBUTION WIDTH 13.6 % (11.5-14.5); WHITE BLOOD COUNT 6.8 K/uL (4.8-10.8)
--- NOTE | 2019-01-14 03:23 | ED PDOC ---
HPI: Abdomen Time Seen by Provider: 01/14/19 02:50 Chief Complaint (Nursing): Abdominal Pain Chief Complaint (Provider): Abdominal pain History Per: Patient History/Exam Limitations: no limitations Current Symptoms Are (Timing): Still Present Location Of Pain/Discomfort: RLQ Quality Of Discomfort: "Pain" Associated Symptoms: Chills, Nausea Additional History Per: Patient Additional Complaint(s): 33yo female, otherwise well, comes to ER reporting right lower quadrant abdominal pain present since last night. Patient reports pain radiates to her back and is associated with chills and nausea. She denies any vomiting or urinary symptoms. Abnormal Vaginal Bleeding: No Past Medical History Reviewed: Historical Data, Nursing Documentation, Vital Signs Vital Signs: Last Vital Signs Temp 97.9 F 01/14/19 02:52 Pulse 73 01/14/19 02:52 Resp 18 01/14/19 02:52 BP 126/83 01/14/19 02:52 Pulse Ox 99 01/14/19 02:52 Primary Care Provider: Procedure,Nonphys - Medical History PMH: No Chronic Diseases - Surgical History Surgical History: (2) - Family History Family History: States: Unknown Family Hx - Living Arrangements Living Arrangements: With Family - Social History Current smoker - smoking cessation education provided: No Alcohol: None Drugs: Denies - Home Medications Home Medications: Ambulatory Orders Medication Instructions Recorded Guaifenesin/Pseudoephedrne HCl 1 ter PO Q12H PRN #10 ter 09/12/17 [Mucinex D 600 mg-60 mg] Naproxen [Naprosyn] 500 mg PO BID PRN #20 tablet 09/12/17 Cyclobenzaprine [Cyclobenzaprine 10 mg PO Q8 PRN #12 tab 02/12/18 HCl] Naproxen 500 mg PO BID PRN #20 tab 02/12/18 Acetaminophen [Tylenol] 325 mg PO Q6 PRN #30 tab 08/10/18 Amoxicillin/Clavulanate [Augmentin 1 tab PO BID #14 tab 08/10/18 875 MG-125 MG] Loratadine [Claritin] 10 mg PO DAILY #10 tab 08/10/18 predniSONE [Prednisone] 20 mg PO BID #10 tab 08/10/18 Erythromycin 0.5% [Erythromycin] 0.5 in BOTHEYES BID #1 tub 11/23/18 Dicyclomine [Bentyl] 20 mg PO QID PRN #10 tab 01/14/19 - Allergies Allergies/Adverse Reactions: Allergies Allergy/AdvReac Type Severity Reaction Status Date / Time aspirin Allergy RASH Verified 01/14/19 02:52 Review of Systems ROS Statement: Except As Marked, All Systems Reviewed And Found Negative Constitutional: Positive for: Chills. Negative for: Fever Gastrointestinal: Positive for: Nausea, Abdominal Pain. Negative for: Vomiting, Diarrhea Genitourinary Female: Negative for: Dysuria, Hematuria Physical Exam - Reviewed Nursing Documentation Reviewed: Yes Vital Signs Reviewed: Yes (afebrile) - Physical Exam Appears: Positive for: Non-toxic, Uncomfortable Head Exam: Positive for: ATRAUMATIC, NORMAL INSPECTION, NORMOCEPHALIC Skin: Positive for: Normal Color Eye Exam: Positive for: Normal appearance ENT: Positive for: Normal ENT Inspection Neck: Positive for: Supple Cardiovascular/Chest: Positive for: Regular Rate, Rhythm. Negative for: Tachycardia Respiratory: Positive for: Normal Breath Sounds. Negative for: Respiratory Distress Gastrointestinal/Abdominal: Positive for: Bowel Sounds, Soft, Tenderness (right lower quadrant; +McBurney's point) Back: Positive for: Normal Inspection Extremity: Positive for: Normal ROM Neurological/Psych: Positive for: Awake, Alert, Normal Tone - Laboratory Results Result Diagrams: 01/14/19 03:17 01/14/19 03:17 - ECG O2 Sat by Pulse Oximetry: 99 (RA) Pulse Ox Interpretation: Normal Medical Decision Making Medical Decision Making: Impression: Right lower abdominal pain rule out appendicitis, uti r/o appendicitis Plan: -- Labs -- Urinalysis -- CT A/P w/ contrast -- Toradol 15mg IV -- Zofran 4mg IV -- IV Fluids 0627 Labs reviewed, patient with no clinically significant abnormalities Patient currently pending CT A/P 0650 Patient reports persistent abdominal pain, morphine 4mg IV ordered 0700 Patient signed out to Dr. Henry pending CT Abdomen/Pelvis --- Scribe Attestation: Documented by Ashanti Watson acting as a scribe for Cris Galaviz MD. Provider Scribe Attestation: All medical record entries made by the Scribe were at my direction and personally dictated by me. I have reviewed the chart and agree that the record accurately reflects my personal performance of the history, physical exam, medical decision making, and the department course for this patient. I have also personally directed, reviewed, and agree with the discharge instructions and disposition. Disposition - Clinical Impression Clinical Impression: Abdominal pain in female - Patient ED Disposition Is Patient to be Admitted: Transfer of Care - Disposition Referrals: [facility] [Outside] Disposition: Transfer of Care Disposition Time: 07:00 Condition: STABLE Prescriptions: Dicyclomine [Bentyl] 20 mg PO QID PRN #10 tab PRN Reason: Pain, Moderate (4-7) Instructions: Acute Abdomen (Belly Pain) Forms: [employer] (Djiboutian) Patient Signed Over To: Samantha Henry
[2019-01-14 03:33] LABS: ALB/GLOB RATIO 1.4 (1.0-2.1); ALBUMIN 3.8 g/dL (3.5-5.0); ALT/SGPT 39 U/L (9-52); AST/SGOT 23 U/L (14-36); BLOOD UREA NITROGEN 12 mg/dl (7-17); CALCIUM 8.3 mg/dL (8.4-10.2); GFR NON-AFRICAN AMERICAN > 60; LIPASE 93 U/L (23-300)
[2019-01-14 03:44] LABS: SQUAMOUS EPITHIAL 2 /hpf (0-5); URINE BILIRUBIN NEGATIVE (NEGATIVE); URINE BLOOD NEGATIVE (NEGATIVE); URINE CLARITY CLEAR (Clear); URINE COLOR COLORLESS (YELLOW); URINE GLUCOSE (UA) NEG (NEGATIVE); URINE LEUKOCYTE ESTERASE NEG Leu/uL (Negative); URINE PROTEIN NEGATIVE (NEGATIVE); URINE UROBILINOGEN 0.2-1.0 mg/dL (0.2-1.0)
[2019-01-14] MEDS ORDERED: Sodium Chloride 0.9% 50 ML IV ONE (06:36)
[2019-01-14] MEDS ORDERED: Iohexol 300 100 ML IJ ONE (06:36)
[2019-01-14] MEDS ORDERED: Morphine 4 MG/ML VIAL IV ONE (06:50)
[2019-01-14] MEDS ORDERED: Morphine 4 MG/ML VIAL ONE (06:53)
--- NOTE | 2019-01-14 07:09 | ED PDOC ---
- Laboratory Results Result Diagrams: 01/14/19 03:17 01/14/19 03:17 Lab Results: Total Bilirubin 0.2 mg/dl (0.2-1.3) 01/14/19 03:17 AST 23 U/L (14-36) 01/14/19 03:17 ALT 39 U/L (9-52) 01/14/19 03:17 Alkaline Phosphatase 42 U/L (38-126) 01/14/19 03:17 Total Protein 6.5 G/DL (6.3-8.2) 01/14/19 03:17 Albumin 3.8 g/dL (3.5-5.0) 01/14/19 03:17 Globulin 2.7 gm/dL (2.2-3.9) 01/14/19 03:17 Albumin/Globulin Ratio 1.4 (1.0-2.1) 01/14/19 03:17 Lipase 93 U/L (23-300) 01/14/19 03:17 Urine Color Colorless (YELLOW) 01/14/19 03:34 Urine Clarity Clear (Clear) 01/14/19 03:34 Urine pH 7.0 (5.0-8.0) 01/14/19 03:34 Ur Specific [place] 1.009 (1.003-1.030) 01/14/19 03:34 Urine Protein Negative mg/dL (NEGATIVE) 01/14/19 03:34 Urine Glucose (UA) Neg mg/dL (NEGATIVE) 01/14/19 03:34 Urine Ketones Negative mg/dL (NEGATIVE) 01/14/19 03:34 Urine Blood Negative (NEGATIVE) 01/14/19 03:34 Urine Nitrate Negative (NEGATIVE) 01/14/19 03:34 Urine Bilirubin Negative (NEGATIVE) 01/14/19 03:34 Urine Urobilinogen 0.2-1.0 mg/dL (0.2-1.0) 01/14/19 03:34 Ur Leukocyte Esterase Neg Que/uL (Negative) 01/14/19 03:34 Urine Microscopic WBC < 1 /hpf (0-5) 01/14/19 03:34 Ur Squamous Epith Cells 2 /hpf (0-5) 01/14/19 03:34 - ECG O2 Sat by Pulse Oximetry: 99 (RA) Pulse Ox Interpretation: Normal Medical Decision Making Medical Decision Making: Time: [address] Galaviz, pending CT abdomen/pelvis and reassessment, rule out appendicitis. 07 CT Abdomen/ Pelvis Findings: Tubular, mildly enhancing structure in the right adnexa measuring 1.7 cm in its largest hospice dimension. Most probably mild right hydrosalpinx with associated inflammatory changes of the right fallopian tube. No fluid collection or drainable abscess formation. Mild diffuse thickening of the bladder. The liver is of uniform attenuation without mass or defect. There is no intra or extrahepatic biliary ductal dilatation. The spleen is normal. The gallbladder is within normal limits. The pancreas is of normal contour and attenuation characteristics. There is no evidence of adrenal mass. Both kidneys demonstrate prompt and equal nephrograms. The kidneys are normal in size, shape and configuration. There is no evidence of renal or ureteral mass. No renal or ureteral calculi are identified. There is no hydroureter or hydronephrosis. No evidence for appendicitis. There is no bowel wall thickening. No evidence for small or large bowel obstruction. There is no evidence of abdominal ascites or lymphadenopathy. There is no evidence of intrinsic or extrinsic bladder mass. There is no pelvic ascites or lymphadenopathy. Images of the lung bases show no evidence of pleural or parenchymal mass. There are no pleural effusions. The bony structures are free of lytic or blastic lesions. IMPRESSION: Tubular, mildly enhancing structure in the right adnexa measuring 1.7 cm in its largest hospice dimension. Most probably mild right hydrosalpinx with associated inflammatory changes of the right fallopian tube. No fluid collection or drainable abscess formation. Normal appendix. Mild thickening of the bladder, probably mild cystitis. 0912 Transvaginal US FINDINGS: UTERUS: Measures 9.5 x 6.1 x 4.8 cm. Normal in size and appearance. No fibroid or other mass lesion seen. ENDOMETRIUM: Measures 11.0 mm in diameter. Unremarkable. CERVIX: No cervical abnormality identified. RIGHT OVARY: Measures 3.9 x 3.3 x 2.0 cm. No solid mass. Normal flow. No right hydrosalpinx identified. LEFT OVARY: Not identified. No suspicious adnexal mass or fluid collection appreciable. No left hydrocele is identified either. FREE FLUID: Trace anechoic fluid is seen in the cul-de-sac, likely physiologic. OTHER FINDINGS: None. IMPRESSION: Mildly enlarged uterus without myometrial or endometrial mass appreciable. No definite hydrosalpinx appreciated bilaterally. Cervix appears unremarkable as well as right ovary. Left ovary is not identified. No suspicious findings are seen otherwise in the left adnexal compartment. Scribe Attestation: Documented by Flori Chaudhry acting as a scribe for Samantha Henry MD. Provider Scribe Attestation: All medical record entries made by the Scribe were at my direction and personally dictated by me. I have reviewed the chart and agree that the record accurately reflects my personal performance of the history, physical exam, medical decision making, and the department course for this patient. I have also personally directed, reviewed, and agree with the discharge instructions and disposition. Disposition - Clinical Impression Clinical Impression: Abdominal pain in female - POA Present On Arrival: None - Disposition Referrals: [facility] [Outside] Disposition: Routine/Home Disposition Time: 09:40 Condition: STABLE Prescriptions: Dicyclomine [Bentyl] 20 mg PO QID PRN #10 tab PRN Reason: Pain, Moderate (4-7) Instructions: Acute Abdomen (Belly Pain) Forms: [employer] (Maltese)
[2019-01-14 07:56] VITALS: RESP 16
--- NOTE | 2019-01-14 09:16 | US ---
Date of service: 01/14/2019 HISTORY: RLQ pain COMPARISON: Abdomen pelvis CT with contrast 01/14/2019, 7:02 a.m.. TECHNIQUE: Transabdominal and transvaginal pelvic ultrasound was performed with longitudinal and transverse images submitted for interpretation. FINDINGS: UTERUS: Measures 9.5 x 6.1 x 4.8 cm. Normal in size and appearance. No fibroid or other mass lesion seen. ENDOMETRIUM: Measures 11.0 mm in diameter. Unremarkable. CERVIX: No cervical abnormality identified. RIGHT OVARY: Measures 3.9 x 3.3 x 2.0 cm. No solid mass. Normal flow. No right hydrosalpinx identified. LEFT OVARY: Not identified. No suspicious adnexal mass or fluid collection appreciable. No left hydrocele is identified either. FREE FLUID: Trace anechoic fluid is seen in the cul-de-sac, likely physiologic. OTHER FINDINGS: None. IMPRESSION: Mildly enlarged uterus without myometrial or endometrial mass appreciable. No definite hydrosalpinx appreciated bilaterally. Cervix appears unremarkable as well as right ovary. Left ovary is not identified. No suspicious findings are seen otherwise in the left adnexal compartment.
--- NOTE | 2019-01-14 10:21 | CT ---
Date of service: 01/14/2019 PROCEDURE: CT Abdomen and Pelvis with contrast HISTORY: ab dpain rlq rule out appendicitis COMPARISON: And pelvis CT with contrast 07/05/2018. TECHNIQUE: Following oral and intravenous contrast administration, a CT examination of the abdomen and pelvis was performed from the domes of the diaphragms to the symphysis pubis with reformatted datasets provided not only axial but also sagittal and coronal series. Contrast dose: Omnipaque 300, 95 cc Radiation dose: Total exam DLP = 861.81 mGy-cm. This CT exam was performed using one or more of the following dose reduction techniques: Automated exposure control, adjustment of the mA and/or kV according to patient size, and/or use of iterative reconstruction technique. FINDINGS: LOWER THORAX: Unremarkable. LIVER: Mild hepatic steatosis reiterated without mass or intrahepatic biliary dilatation. GALLBLADDER AND BILE DUCTS: Unremarkable. PANCREAS: Unremarkable. No gross lesion or ductal dilatation. SPLEEN: Unremarkable. ADRENALS: Unremarkable. No mass. KIDNEYS AND URETERS: Unremarkable. No hydronephrosis. No solid mass. VASCULATURE: Unremarkable. No aortic aneurysm. No aortic atherosclerotic calcification or mural plaque present. BOWEL: Unremarkable. No obstruction. No gross mural thickening. APPENDIX: Normal appendix. PERITONEUM: Unremarkable. No free fluid. No free air. LYMPH NODES: Unremarkable. No enlarged lymph nodes. BLADDER: Unremarkable. REPRODUCTIVE: Lucency cephalad to the right ovary may reflect hydrosalpinx. Exophytic cyst is possible as well off the right ovary. Left adnexa compartment unremarkable as well as the uterus. BONES: No fracture identified. OTHER FINDINGS: None. IMPRESSION: 1. Insert limited hydrosalpinx cephalad to right ovary. Follow-up pelvic ultrasound recommended. 2. Normal appearing appendix. 3. Mild hepatic steatosis reiterated. Concordant preliminary report from [facility], 01/14/2019, 7:27 a.m..
[2019-01-14 11:23] VITALS: BP 110/72; PULSE 72; TEMP 98.4
[2019-01-15 10:06] VITALS: O2SAT 99
== END 2019-01-14 10:25 | disposition home or self-care (01) ==
LOC: H.ER 02:35
DX: R10.2 Pelvic and perineal pain (principal)
CPT/HCPCS: 74177; 76830; 80053; 81003; 81025; 83690; 85025; 87040; 87086; 96374; 96375; 99284; J1885; J2270; J2405; J7030; Q9966; Q9967